=== PATIENT | female | born 1950 | race African-American/Black ===

== ENCOUNTER 2024-12-18 22:23 | Inpatient (IN) | payer MEDICARE, OTHER ==
[~2024-12-18] VITALS: Ht 165.1 cm; Wt 79.8 kg
[2024-12-18] MEDS ORDERED: MORPHINE SULFATE INJ 2 MG/ML DISP.SYRIN ONE (23:31)
[2024-12-18] MEDS ORDERED: FUROSEMIDE 40 MG/4 ML VIAL ONE (23:31)
[2024-12-18] MEDS ORDERED: ONDANSETRON HCL/PF 4 MG/2 ML VIAL ONE (23:31)
[2024-12-18] MEDS: MORPHINE SULFATE INJ 2 MG/ML DISP.SYRIN IV ONE (23:40)
[2024-12-18] MEDS: FUROSEMIDE 40 MG/4 ML VIAL IV ONE (23:40)
[2024-12-18] MEDS: ONDANSETRON HCL/PF - ER 4 MG/2 ML VIAL IV ONE (23:40)
[2024-12-18 23:45] LABS: BASOPHILS % (AUTO) 0.5 % (0.0-2.0); EOSINOPHILS # (AUTO) 0.1 K/uL (0.0-0.7); EOSINOPHILS % (AUTO) 1.4 % (0.0-6.0); HEMATOCRIT 36 % (33-45); HEMOGLOBIN 11.7 g/dL (11.5-14.8); LYMPHOCYTES # (AUTO) 1.3 K/uL (0.8-4.8); LYMPHOCYTES % (AUTO) 24.5 % (20.0-44.0); MEAN CORPUSCULAR HEMOGLOBIN 31 PG (26.0-33.0); MEAN CORPUSCULAR HGB CONC 33 g/dl (31.0-36.0); MEAN CORPUSCULAR VOLUME 96 fL (82-100); MONOCYTES # (AUTO) 0.9 K/uL (0.1-1.30); NEUTROPHILS # (AUTO) 3.1 K/uL (1.8-8.9); NEUTROPHILS % (AUTO) 57.6 % (43.0-81.0); PLATELET COUNT (AUTO) 276 K/uL (150-450); RED BLOOD CELL COUNT(AUTO) 3.73 MIL/uL (4.0-5.2); RED CELL DISTRIBUTION WIDTH 16.3 % (11.5-15.0); WHITE BLOOD COUNT (AUTO) 5.5 K/uL (4.3-11.0)
[2024-12-19] VITALS: BP 120/71; TEMP 97.7; O2SAT 99
[2024-12-19] LABS: CALCIUM, SERUM 10.3 mg/dL (8.5-10.1); CREATININE 1.2 mg/dL (0.6-1.3); POTASSIUM 4.3 mmol/L (3.5-5.1)
[2024-12-19 00:04] LABS: INR 1.08 (0.91-1.10); PARTIAL THROMBOPLASTIN TIME 26.2 SEC (24.3-34.3); PROTHROMBIN TIME 11.4 SECS (9.2-11.1)
[2024-12-19 00:05] LABS: ALBUMIN 3.4 g/dL (3.4-5.0); BILIRUBIN,TOTAL 0.7 mg/dL (0.2-1.0); TOTAL PROTEIN, SERUM 8.2 g/dL (6.4-8.2)
[2024-12-19 01:32] LABS: NEUTROPHILS % (MANUAL) 52 (42-76)
[2024-12-19 01:33] LABS: LYMPHOCYTES % (MANUAL) 33 % (16-48); MONOCYTES % (MANUAL) 15 % (0-11.0); PLATELET ESTIMATE ADEQUATE
[2024-12-19 01:34] LABS: TEAR DROP CELLS FEW
[2024-12-19] MEDS ORDERED: ONDANSETRON HCL/PF 4 MG/2 ML VIAL IVP PRN (03:30)
[2024-12-19] MEDS ORDERED: Z GUARD REMEDY 4 OZ OINT TP PRN (03:30)
[2024-12-19] MEDS ORDERED: ACETAMINOPHEN 325 MG TABLET PO PRN (03:30)
[2024-12-19 04:00] VITALS: BP 117/72; TEMP 97.3
[2024-12-19 08:00] VITALS: BP 123/64; TEMP 97.5; O2SAT 98
[2024-12-19] MEDS: PANTOPRAZOLE 40 MG TABLET.DR PO SCH (08:11)
[2024-12-19] MEDS ORDERED: METO200T49 PO (09:31)
[2024-12-19] MEDS ORDERED: LOSA100T31 PO (09:31)
[2024-12-19] MEDS ORDERED: MELO-107 PO (09:31)
[2024-12-19] MEDS ORDERED: SYMBICORT IH (09:31)
[2024-12-19] MEDS ORDERED: PREG150C93 PO (09:31)
[2024-12-19] MEDS ORDERED: TRAM50TA2 PO (09:31)
[2024-12-19] MEDS ORDERED: APIX5TAB PO (09:31)
[2024-12-19] MEDS ORDERED: ALBU6.7H9 IH (09:31)
[2024-12-19] MEDS ORDERED: MOUNJARO SQ (09:31)
[2024-12-19] MEDS ORDERED: FURO20TA4 PO (09:31)
[2024-12-19 12:00] VITALS: BP 123/64; TEMP 97.5; O2SAT 98
[2024-12-19] MEDS: IV NS 0.9% 1,000 ML IV PRN (13:54)
[2024-12-19 16:00] VITALS: BP 105/57; TEMP 98.6; O2SAT 99
[2024-12-19] MEDS ORDERED: ALBUTEROL FS 2.5 MG/3 ML VIAL.NEB NEB PRN (17:00)
[2024-12-19 20:00] VITALS: BP 120/71; TEMP 97.7; O2SAT 99
[2024-12-20] MEDS: TRAMADOL HCL 50 MG TABLET PO PRN (03:02)
[2024-12-20 04:00] VITALS: BP 125/65; TEMP 98; O2SAT 99
[2024-12-20 06:40] LABS: BASOPHILS % (AUTO) 0.5 % (0.0-2.0); EOSINOPHILS # (AUTO) 0.1 K/uL (0.0-0.7); EOSINOPHILS % (AUTO) 1.9 % (0.0-6.0); HEMATOCRIT 32 % (33-45); HEMOGLOBIN 10.6 g/dL (11.5-14.8); LYMPHOCYTES # (AUTO) 1.5 K/uL (0.8-4.8); LYMPHOCYTES % (AUTO) 30.2 % (20.0-44.0); MEAN CORPUSCULAR HEMOGLOBIN 32 PG (26.0-33.0); MEAN CORPUSCULAR HGB CONC 34 g/dl (31.0-36.0); MEAN CORPUSCULAR VOLUME 96 fL (82-100); MONOCYTES # (AUTO) 0.9 K/uL (0.1-1.30); MONOCYTES % (AUTO) 18.8 % (2.0-12.0); NEUTROPHILS # (AUTO) 2.4 K/uL (1.8-8.9); NEUTROPHILS % (AUTO) 48.6 % (43.0-81.0); PLATELET COUNT (AUTO) 240 K/uL (150-450); RED BLOOD CELL COUNT(AUTO) 3.31 MIL/uL (4.0-5.2); RED CELL DISTRIBUTION WIDTH 16.2 % (11.5-15.0); WHITE BLOOD COUNT (AUTO) 4.9 K/uL (4.3-11.0)
[2024-12-20 07:25] LABS: ALBUMIN 2.7 g/dL (3.4-5.0); BILIRUBIN,TOTAL 0.5 mg/dL (0.2-1.0); CALCIUM, SERUM 8.7 mg/dL (8.5-10.1); CREATININE 1.2 mg/dL (0.6-1.3); MAGNESIUM 2.2 mg/dL (1.8-2.4); PHOSPHORUS 3.4 mg/dL (2.5-4.9); POTASSIUM 3.7 mmol/L (3.5-5.1); TOTAL PROTEIN, SERUM 6.8 g/dL (6.4-8.2)
[2024-12-20 07:31] LABS: CREATINE KINASE, TOTAL 30 U/L (26-192)
[2024-12-20] MEDS: LOSARTAN POTASSIUM 50 MG TABLET PO SCH (08:34)
[2024-12-20 12:00] VITALS: BP 135/75; TEMP 98.7; O2SAT 99
[2024-12-21 08:07] LABS: PTH, INTACT 51 pg/mL (15-65)
== END 2024-12-20 17:13 | DRG 641 ==
LOC: ER 22:26 → TELE1 12-19 01:32 → MEDSG1 12-19 03:45
PROVIDERS: ADMIT Nurse Practitioner Acute Care; ATTEND Nurse Practitioner Acute Care
DX: E86.0 Dehydration (principal); I13.0 Hypertensive heart and chronic kidney disease with heart failure and stage 1 through stage 4 chronic kidney disease, or unspecified chronic kidney disease; I48.20 Chronic atrial fibrillation, unspecified; I50.9 Heart failure, unspecified; R79.89 Other specified abnormal findings of blood chemistry; N18.30 Chronic kidney disease, stage 3 unspecified; Z79.01 Long term (current) use of anticoagulants; J44.9 Chronic obstructive pulmonary disease, unspecified; G89.4 Chronic pain syndrome; W01.0XXA Fall on same level from slipping, tripping and stumbling without subsequent striking against object, initial encounter; E83.52 Hypercalcemia; W22.01XA Walked into wall, initial encounter; Y92.000 Kitchen of unspecified non-institutional (private) residence as the place of occurrence of the external cause; E11.22 Type 2 diabetes mellitus with diabetic chronic kidney disease; Z87.891 Personal history of nicotine dependence; E66.9 Obesity, unspecified; Z68.29 Body mass index [BMI] 29.0-29.9, adult; D64.9 Anemia, unspecified; M67.442 Ganglion, left hand; I80.9 Phlebitis and thrombophlebitis of unspecified site; S00.93XA Contusion of unspecified part of head, initial encounter; E83.51 Hypocalcemia
CPT/HCPCS: 36415; 70450-TC; 71045-TC; 72125-TC; 80048-TC; 80053-TC; 82550-TC; 83735-TC; 83970; 84100-TC; 84155; 84165; 84484-TC; 85025-TC; 85610-TC; 85730-TC; 93307-TC; 93970-TC; 97110-TC; 97116-TC; 97530-TC; 97535-TC; G0378; J1938; J2270; J2405; J7030